=== PATIENT | male | born 1970 ===

== ENCOUNTER 2023-04-09 07:47 | Emergency (ER) | payer OTHER ==
[~2023-04-09] VITALS: Ht 177.8 cm; Wt 97.5 kg
[~2023-04-09 07:47] MED LIST: AZIT250 PO; CEPH500 PO; CYCL10 PO; HYDACE10B PO; HYDACE5 PO; HYDGUAL120 PO; LISHYD1012; Mobic15 MG PO; Prilosec Otc20 MG PO; RXHYDACE PO; SIMV40; Ultram50 MG PO
[2023-04-09 08:08] VITALS: BP 143/83
[2023-04-09] MEDS ORDERED: Prednisone20 MG PO (08:26)
== END 2023-04-09 08:45 | disposition home or self-care (01) ==
LOC: ER 07:47
DX: M10.9 Gout, unspecified (principal); Z79.899 Other long term (current) drug therapy; Z79.891 Long term (current) use of opiate analgesic; F17.200 Nicotine dependence, unspecified, uncomplicated
CPT/HCPCS: 73610; 99283-25